=== PATIENT | male | born 2000 | race Asian ===

== ENCOUNTER 2018-09-27 15:06 | Emergency (ER) | payer BC ==
[~2018-09-27] VITALS: Ht 170.2 cm; Wt 78.6 kg
[2018-09-27 15:34] VITALS: BP 127/83
== END 2018-09-27 16:35 | disposition home or self-care (01) ==
LOC: ER 15:06
DX: M25.572 Pain in left ankle and joints of left foot (principal); V29.9XXA Motorcycle rider (driver) (passenger) injured in unspecified traffic accident, initial encounter; Y93.55 Activity, bike riding; Y92.89 Other specified places as the place of occurrence of the external cause; Y99.8 Other external cause status
CPT/HCPCS: 73610; 99283